=== PATIENT | female | born 1930 | race Caucasian/White ===

== ENCOUNTER 2016-06-22 16:49 | Emergency (ER) | payer MEDICARE, BC ==
[~2016-06-22 16:49] MED LIST: ACIDOPHILU1 PO; ALIGN4 MG PO; ASA5GR PO; ASAB PO; ASPERCREME TOP; ATRONASAL6 NAS; B12100T PO; BACTROCR TOP; BILBERRY PO; BILBERRY60 MG PO; BIOTIN5 MG PO; CALTRA600D PO; CAT1 PO; CENTRUM SILVER PO; CEREFOLINNAC PO; CHONDROITIN PO; CO Q-10100 MG PO; COZAAR100 MG PO; CRANBERRY1 TAB OR; DIOV160 PO; EVISTA60 PO; FLEX PO; GLUCCHONDR PO; GLUCOSAMINE SULFATE PO; HEMA-PLEX; LECITHIN1200 MG OR; LEVOTHROID75 MCG PO; LIPOTRIAD1 CAP PO; LUTEIN1 CAP PO; LUTEIN20 MG OR; Lecithin PO; MAGNESIUM PO; MAGOX4 PO; MANGANESE OR; MANGANESE PO; MILK THISTLE PO; MOBIC7.5 PO; MSM1000 M1 OR; MSM1000 MG PO; OMEGA 3,6,9 PO; PRILO PO; PRILOSEC OTC20 MG PO; PROVASMIN PO; REFRES1; REFRESH OPH SO0.3 ML OPH; SELENIUM PO; SPIRO25 PO; THERGRANM PO; TYLENOL ARTH650 MG PO; UBIQUINOL PO; VAGIFEM25 MCG V; VARIOUS SUPPLEMENTS; VIT B-SIX 50 MG50 MG PO; VIT C PO; VITAMIN C100 M1 PO; VITAMIN D1000 UNI1 PO; VITAMIN D3; VITAMIN D3 PO; VITC500 PO; VITE PO; VYTORIN 10/20 T1 TAB PO; Vitamin E PO; ZANTAC 150 PO; ZANTAC150 MG PO; ZOCOR20 PO; ZOFRAN8 PO; [UNRECOGNIZED DRUG - OTHER]; [UNRECOGNIZED DRUG - OTHER] OPH; [UNRECOGNIZED DRUG - OTHER] PO; [UNRECOGNIZED DRUG - OTHER] PO; [UNRECOGNIZED DRUG - OTHER] PO; [UNRECOGNIZED DRUG - OTHER] PO; [UNRECOGNIZED DRUG - OTHER] PO; [UNRECOGNIZED DRUG - OTHER] PO; [UNRECOGNIZED DRUG - REMARK]; [UNRECOGNIZED DRUG - REMARK]
[2016-06-22 16:56] LABS: BASOPHILS 0.4 %; BASOPHILS ABSOLUTE 0.06 10/3/uL (0.0-0.16); EOSINOPHILS 0.6 %; EOSINOPHILS ABSOLUTE 0.09 10/3/uL (0.0-0.53); IMMATURE GRANULOCYTES 0.5 %; IMMATURE GRANULOCYTES ABSOLUTE 0.07 10/3/uL (0.0-0.11); LYMPHOCYTES 8.1 %; MEAN CORPUS HGB CONC 33.1 g/dL (32.0-36.0); MEAN CORPUSCULAR HEMOGLOB 30.1 pg (26.0-34.0); MEAN CORPUSCULAR VOLUME 90.8 fL (80-100); MEAN PLATELET VOLUME 8.3 fL (9.2-13.0); MONOCYTES 4.3 %; MONOCYTES ABSOLUTE 0.64 10/3/uL (0.21-1.20); NEUTROPHILS 86.1 %; NEUTROPHILS ABSOLUTE 12.84 10/3/uL (2.02-8.40); PLATELET COUNT 449 10/3/uL (150-400); RBC DISTRIBUTION WIDTH 16.5 % (12.0-16.0)
[2016-06-22 16:57] LABS: HEMATOCRIT 32.6 % (36.0-48.0); HEMOGLOBIN 10.8 g/dL (12.0-16.0); MANUAL DIFF NO %; RED CELL COUNT 3.59 10/6/uL (4.0-5.6); WHITE BLOOD CELLS 14.9 10/3/uL (4.5-10.5)
[2016-06-22 17:05] LABS: PARTIAL THROMBO TIME 26.6 SEC (22.5-37.2); PROTIME (NOT ORD) 13.2 SEC (12.0-14.5)
[2016-06-22 17:17] LABS: BUN (BLOOD UREA NITROGEN) 30 MG/DL (6-23); CALCIUM, SERUM 9.5 MG/DL (8.5-10.4); CHEST PAIN PROFILE TAT 0 Hrs 26 Mins; CHLORIDE, SERUM 98 MMOL/L (96-112); CO2 (CARBON DIOXIDE) 24 MMOL/L (24-34); CREATININE 0.76 MG/DL (0.55-1.02); GFR AFRICAN AMERICAN 82 ML/MIN (>=60); GFR NON AFRICAN AMERICAN 71 ML/MIN (>=60); GLUCOSE, SERUM 96 MG/DL (60-99); POTASSIUM, SERUM 5.1 MMOL/L (3.5-5.3); SODIUM, SERUM 129 MMOL/L (135-148); TROPONIN I <0.02 NG/ML (<0.05)
[2016-07-20] MEDS ORDERED: VOLTAREN1 % TOP (13:58)
[2016-07-20] MEDS ORDERED: ATRONASAL6 NAS (13:59)
[2016-07-20] MEDS ORDERED: NORV5 PO (13:59)
[2016-07-20] MEDS ORDERED: LEVOTHYROXIN75 MCG PO (14:00)
[2016-07-20] MEDS ORDERED: BACTROINT TOP (14:01)
[2016-07-20] MEDS ORDERED: SPIRO25 PO (14:01)
[2016-07-20] MEDS ORDERED: FLECAINIDE50 MG PO (14:02)
[2016-07-20] MEDS ORDERED: NORCO1 TA1 PO (14:03)
[2016-07-20] MEDS ORDERED: ULTRAM50 PO (14:04)
[2016-07-20] MEDS ORDERED: COZAAR100 MG PO (14:05)
[2016-07-20] MEDS ORDERED: CAT1 PO (14:06)
[2016-07-20] MEDS ORDERED: ZOCOR40 PO (14:07)
[2016-07-20] MEDS ORDERED: LAM250 PO (14:09)
[2016-07-20] MEDS ORDERED: CEREFOLINNAC PO (14:38)
[2016-07-20] MEDS ORDERED: CALTRA600D PO (14:40)
[2016-07-20] MEDS ORDERED: BIOTIN5 MG PO (14:40)
[2016-07-20] MEDS ORDERED: PLAVIX PO (14:41)
[2016-07-20] MEDS ORDERED: D 5000 PO (14:41)
[2016-07-20] MEDS ORDERED: CO Q-10200 MG PO (14:42)
[2016-07-20] MEDS ORDERED: FLEX PO (14:43)
[2016-07-20] MEDS ORDERED: CRANBERRY300 MG OR (14:43)
[2016-07-20] MEDS ORDERED: ESTRADIOL VAG PO (14:44)
[2016-07-20] MEDS ORDERED: GENTEA2 OPH (14:44)
[2016-07-20] MEDS ORDERED: MAGOX4 PO (14:45)
[2016-07-20] MEDS ORDERED: LUTEIN20 MG OR (14:45)
[2016-07-20] MEDS ORDERED: ZANTAC150 MG PO (14:50)
[2016-07-20] MEDS ORDERED: FISH-EPA1000 MG PO (14:53)
[2016-07-20] MEDS ORDERED: GAVISCO2 PO (14:54)
== END 2016-06-22 18:40 | disposition home or self-care (01) ==
LOC: ER 16:49
PROVIDERS: Emergency Medicine
DX: S13.120A Subluxation of C1/C2 cervical vertebrae, initial encounter (principal); M47.892 Other spondylosis, cervical region; D72.829 Elevated white blood cell count, unspecified; E87.1 Hypo-osmolality and hyponatremia; E83.41 Hypermagnesemia; R51 Headache; D64.9 Anemia, unspecified; Z88.1 Allergy status to other antibiotic agents; Z91.048 Other nonmedicinal substance allergy status; Z79.899 Other long term (current) drug therapy; X58.XXXA Exposure to other specified factors, initial encounter
CPT/HCPCS: 70450; 71010; 72125; 80048; 83735; 84484; 85025; 85610; 85730; 93005; 96374; 96375; 99285

== ENCOUNTER 2016-07-23 11:40 | Day surgery (SDC) | payer MEDICARE, BC ==
--- NOTE | ~2016-07-23 | OP ---
Record Of Operation [facility] [address] [place]. [address] NAME: MENDOZA GARCIA : 30 STATUS : [facility]#: [id number] AGE: 86 ADM/REG DATE : 07/23/16 MR#: [id number] REPORT SERV DATE: 07/23/16 DICTATED BY: JUSTINA SMITH DATE: 07/23/16 REPORT STATUS : Draft TRANSCRIBED BY: MODL DATE: 07/23/16 DATE OF PROCEDURE: 07/23/2016 PREOPERATIVE DIAGNOSIS: Peripheral arterial disease with nonhealing wounds right foot. POSTOPERATIVE DIAGNOSIS: Peripheral arterial disease with nonhealing wounds right foot. PROCEDURE: 1. Aortogram right leg runoff via the left groin. 2. Arteriogram via the right groin. ANESTHESIA: Local with sedation. COMPLICATIONS: None. ESTIMATED BLOOD LOSS: 30 mL. HISTORY: The patient is an 86-year-old female with nonhealing wounds on the right foot. It was thought she would benefit from arteriogram with intervention to achieve healing. This was discussed in detail with the patient and her and they expressed understanding and desired to proceed. DESCRIPTION OF PROCEDURE: The patient was taken to the operating up room and placed in the supine position. She was given IV sedation without complication. Both groins were prepped and draped in the sterile fashion. Ultrasound was used to identify the common femoral artery on the left. 1% lidocaine was infiltrated in the skin and subcutaneous tissues. Under ultrasound guidance, a needle was placed in the common femoral artery. Wire was passed in the aorta which confirmed with fluoroscopy. The needle was removed. A 5-Syriac sheath placed. UF catheter was passed with the wire in the aorta. The aortogram shows a patent aorta. The renal arteries are not seen. The common iliac arteries were patent bilaterally. There was a stent on the left. The external and internal iliac arteries were patent on the left. On the right, the internal iliac artery was patent, the external iliac artery was occluded. The wire was placed in the catheter. Catheter was placed into the right internal iliac artery. Arteriogram here shows widely patent internal iliac artery. No flow was seen in the external iliac artery. There was extensive collaterals that filled to the groin. The common femoral and superficial femoral arteries on the right are occluded. The profunda femoral artery fills via the large collaterals. Attempts were made to cross the occlusion with the Glidewire and UF catheter though this was not possible. Attention was then turned to the right groin and attempts were made to access the superficial femoral artery under ultrasound guidance with a micropuncture needle but this was occluded and the wire would not pass. The common femoral artery was then identified and accessed with a micropuncture needle and the wire did pass proximally. The micropuncture wire was placed and the needle removed and a micropuncture dilator placed. Attempts were made to cross the iliac occlusion with a micropuncture dilator of 0.018, V18 wire followed by a TrailBlazer 18 catheter however, even with passing proximally, this could not be used to access the true lumen. On the left side, a wire was placed and the sheath exchanged for Record Of Operation [address] [place]. [address] NAME: MENDOZA GARCIA : 30 STATUS : [facility] PAT#: [id number] AGE: 86 ADM/REG DATE : 07/23/16 MR#: [id number] REPORT SERV DATE: 07/23/16 DICTATED BY: JUSTINA SMITH DATE: 07/23/16 REPORT STATUS : Draft TRANSCRIBED BY: FLOYD DATE: 07/23/16 a 645 sheath. Additional imaging of the right leg shows once again the profunda is patent on the right. The common femoral and superficial femoral arteries were occluded. There is reconstitution of the popliteal artery above the knee and this was patent to [id number] with an early origin of the anterior tibial artery which is patent. The posterior tibial, peroneal, and [id number] popliteal arteries were patent as well. Extensive efforts were made from both the access in the left groin and right groin to cross the occlusion of the external iliac artery; however, this was not successful in the true lumen. Arteriogram was performed from the right groin via the TrailBlazer catheter and this showed the access within the dissection. After extensive efforts from both directions, it was felt that this occlusion would not be achievable from this access. On a few arteriograms, it did appear that there was extravasation at the origin of the internal iliac artery likely due to a catheter or a wire injury; however, on the later imaging, there does not appear to be any more extravasation and this likely sealed on its own. The access was removed from the right groin and pressure held until hemostasis was achieved. On the left, the sheath was removed and access closed with StarClose device without difficulty. The patient tolerated the procedure well. She will be taken to recovery room and observed prior to discharge. JASON/FLOYD Justina Smith M.D. / [id number] CC: Rickey Krause M.D.
[~2016-07-23 11:40] MED LIST changes: +BACTROINT TOP; +CO Q-10200 MG PO; +CRANBERRY300 MG OR; +D 5000 PO; +ESTRADIOL VAG PO; +FISH-EPA1000 MG PO; +FLECAINIDE50 MG PO; +GAVISCO2 PO; +GENTEA2 OPH; +LAM250 PO; +LEVOTHYROXIN75 MCG PO; +NORCO1 TA1 PO; +NORV5 PO; +PLAVIX PO; +ULTRAM50 PO; +VOLTAREN1 % TOP; +ZOCOR40 PO
[2016-07-23 12:24] LABS: BASOPHILS 0.4 %; BASOPHILS ABSOLUTE 0.04 10/3/uL (0.0-0.16); EOSINOPHILS 1.2 %; EOSINOPHILS ABSOLUTE 0.13 10/3/uL (0.0-0.53); HEMOGLOBIN 11.7 g/dL (12.0-16.0); IMMATURE GRANULOCYTES 0.4 %; IMMATURE GRANULOCYTES ABSOLUTE 0.05 10/3/uL (0.0-0.11); LYMPHOCYTES 12.3 %; LYMPHOCYTES ABSOLUTE 1.39 10/3/uL (0.67-4.30); MEAN CORPUS HGB CONC 33.4 g/dL (32.0-36.0); MEAN CORPUSCULAR HEMOGLOB 29.4 pg (26.0-34.0); MEAN PLATELET VOLUME 8.1 fL (9.2-13.0); MONOCYTES 6.1 %; MONOCYTES ABSOLUTE 0.69 10/3/uL (0.21-1.20); NEUTROPHILS 79.6 %; NEUTROPHILS ABSOLUTE 8.96 10/3/uL (2.02-8.40); PLATELET COUNT 417 10/3/uL (150-400); RBC DISTRIBUTION WIDTH 14.6 % (12.0-16.0); RED CELL COUNT 3.98 10/6/uL (4.0-5.6); WHITE BLOOD CELLS 11.3 10/3/uL (4.5-10.5)
[2016-07-23 12:26] LABS: MANUAL DIFF NO %; MEAN CORPUSCULAR VOLUME 87.9 fL (80-100)
[2016-07-23 12:43] LABS: BUN (BLOOD UREA NITROGEN) 27 MG/DL (6-23); CALCIUM, SERUM 9.5 MG/DL (8.5-10.4); CHLORIDE, SERUM 104 MMOL/L (96-112); CO2 (CARBON DIOXIDE) 25 MMOL/L (24-34); CREATININE 0.67 MG/DL (0.55-1.02); GFR AFRICAN AMERICAN 92 ML/MIN (>=60); GFR NON AFRICAN AMERICAN 80 ML/MIN (>=60); GLUCOSE, SERUM 94 MG/DL (60-99); POTASSIUM, SERUM 4.3 MMOL/L (3.5-5.3)
[2016-07-23 12:44] LABS: SODIUM, SERUM 137 MMOL/L (135-148)
== END 2016-07-23 20:30 | disposition home or self-care (01) ==
LOC: SDC 11:40 → SSU1 16:42
PROVIDERS: Surgery
PROC: B41DZZZ Fluoroscopy of Aorta and Bilateral Lower Extremity Arteries (ICD-10-PCS; principal; 2016-07-23 13:15)
DX: I73.89 Other specified peripheral vascular diseases (principal); A80.9 Acute poliomyelitis, unspecified; I10 Essential (primary) hypertension; E78.5 Hyperlipidemia, unspecified; M79.7 Fibromyalgia; M19.90 Unspecified osteoarthritis, unspecified site; K21.9 Gastro-esophageal reflux disease without esophagitis; Z88.1 Allergy status to other antibiotic agents; Z91.040 Latex allergy status; Z91.048 Other nonmedicinal substance allergy status; Z79.891 Long term (current) use of opiate analgesic; Z79.899 Other long term (current) drug therapy
CPT/HCPCS: 36140; 36246; 75625; 75710; 75736; 80048; 85025; A9270-GY; C1769; C1894; J0690; J3010; Q9967